=== PATIENT | male | born 1980 | race Caucasian/White ===

== ENCOUNTER 2019-07-02 10:55 | Day surgery (SDC) | payer OTHER ==
[2019-07-02] MEDS: LACTATED RINGER'S 1,000 ML IV (12:12)
[2019-07-02] MEDS ORDERED: PROPOFOL 20 ML (13:08)
[2019-07-02] MEDS ORDERED: SEVOFLURANE 15 MIN (13:08)
[2019-07-02] MEDS ORDERED: FENTAnyl 50 MCG/ML VIAL (13:08)
[2019-07-02] MEDS ORDERED: CEFAZOLIN 1 GM INJ (13:08)
[2019-07-02] MEDS ORDERED: ROPIVACAINE 0.5 % 30 ML VIAL ×2 (13:08→14:38)
[2019-07-02] MEDS ORDERED: ROCURONIUM 50 MG INJ (13:08)
[2019-07-02] MEDS ORDERED: MIDAZOLAM 1 MG/ML 2 ML INJ (13:08)
[2019-07-02] MEDS ORDERED: METOCLOPRAMIDE 10 MG INJ (14:27)
[2019-07-02] MEDS ORDERED: ONDANSETRON 4 MG INJ (14:27)
[2019-07-02] MEDS ORDERED: DEXAMETHASONE 4 MG/ML 5 ML INJ (14:27)
[2019-07-02] MEDS ORDERED: KETOROLAC 30 MG INJ (14:28)
[2019-07-02] MEDS ORDERED: HEPARIN 1000 UNITS/ML 10 ML INJ (14:39)
[2019-07-02] MEDS: ROPIVACAINE 0.5 % 30 ML VIAL (15:39)
[2019-07-02] MEDS: NEOMYC/POLYMYX/BACIT 30 GM OINT (15:39)
[2019-07-02] MEDS: POLYMYXIN/BACITRACIN 1L IRRIG IRR (15:39)
[2019-07-02] MEDS ORDERED: SUGAMMADEX SODIUM 200 MG/2 ML VIAL IV (16:25)
[2019-07-02] MEDS: SOD CHLORIDE 0.9% 1,000 ML IV (16:44)
[2019-07-02] MEDS ORDERED: METOCLOPRAMIDE 10 MG INJ IV (17:00)
[2019-07-02] MEDS ORDERED: FENTAnyl 50 MCG/ML VIAL IV ×2 (17:00)
[2019-07-02] MEDS ORDERED: HYDROmorphONE 1 MG/5 ML IV SYRINGE IV ×2 (17:00)
[2019-07-02] MEDS ORDERED: ONDANSETRON 4 MG INJ IV ×2 (17:00)
[2019-07-02] MEDS ORDERED: OXYCODONE/ACETAMINOPHEN (5/325) TAB PO ×3 (17:00)
[2019-07-02] MEDS ORDERED: morphine 2 MG INJ IV ×3 (17:00)
[2019-07-02] MEDS ORDERED: EPHEDrine 25 MG/5 ML SYG IV (17:00)
[2019-07-02] MEDS: OXYCODONE/ACETAMINOPHEN (5/325) TAB PO (17:25)
== END 2019-07-02 18:25 | disposition home or self-care (01) ==
LOC: SDS 10:55
DX: S72.422D Displaced fracture of lateral condyle of left femur, subsequent encounter for closed fracture with routine healing (principal); X58.XXXD Exposure to other specified factors, subsequent encounter; M94.262 Chondromalacia, left knee
CPT/HCPCS: 29877